=== PATIENT | male | born 1960 | race Caucasian/White ===

== ENCOUNTER 2020-12-04 10:37 | Outpatient (CLI) | payer OTHER | END 2020-12-04 10:38 | disposition home or self-care (01) | LOC: CSHULT 10:37 | PROVIDERS: ATTEND Nurse Practitioner Family | DX: B18.2 Chronic viral hepatitis C (principal); K74.60 Unspecified cirrhosis of liver; R16.1 Splenomegaly, not elsewhere classified | CPT/HCPCS: 76705 ==

== ENCOUNTER 2022-02-26 08:52 | Outpatient (CLI) | payer OTHER ==
[~2022-02-26 08:52] MED LIST: Iopamidol 300 61% 100 ML VIAL FS ONE
== END 2022-02-26 08:53 | disposition home or self-care (01) ==
LOC: CSHCT 08:52
PROVIDERS: ATTEND Urology
DX: R31.0 Gross hematuria (principal); N28.1 Cyst of kidney, acquired; K74.60 Unspecified cirrhosis of liver; K76.6 Portal hypertension; I87.8 Other specified disorders of veins
CPT/HCPCS: 74178; 82565; Q9967

== ENCOUNTER 2022-11-15 11:54 | Emergency (ER) | payer OTHER ==
[2022-11-15 13:18] LABS: INR-International Normal Ratio 1.1; PTT 29.9 sec (22.0-33.0); Prothrombin Time 12.1 sec (9.5-12.1)
[2022-11-15 13:40] LABS: #Basophils 0.1 10x3/uL (0.0-0.2); #Eosinphils 0.2 10x3/uL (0.0-0.5); #Monocytes 0.4 10x3/uL (0.0-1.1); #Neutrophils 2.7 10x3/uL (1.5-8.4); %Basophils 1.3 % (0.0-2.0); %Eosinophils 4.5 % (0.0-6.0); %Lymphocytes 15.6 % (18.0-47.0); %Monocytes 9.3 % (0.0-10.0); Hemoglobin 10.7 g/dL (13.5-17.5); Mean Corpuscular HGB CONC 34.9 g/dL (32.0-36.0); Mean Corpuscular Hemoglobin 32.4 pg (27.0-33.0); Mean Platelet Volume 12.5 fl (7.4-10.4); Platelet Count 61 10x3/uL (150-450); RBC Distribution Width 13.8 % (11.5-14.5)
[2022-11-15] MEDS ORDERED: Sodium Bicarbonate 2.5 MEQ/5 ML VIAL ONE (14:10)
[2022-11-15] MEDS ORDERED: Lidocaine 1% PF 5 ML VIAL ONE (14:10)
[2022-11-15 14:15] LABS: ALT (SGPT) 28 U/L (8-55); AST (SGOT) 38 U/L (5-34); Albumin 3.3 g/dL (3.4-4.8); Alkaline Phosphatase 113 U/L (40-110); Anion Gap 11 mmol/L (10-20); BUN (Urea Nitrogen) 16 mg/dL (8.4-25.7); Bilirubin, Total 1.6 mg/dL (0.2-1.2); Calc. Creatinine Clearance 0 mL/min (70-130); Calcium 8.4 mg/dL (7.8-10.44); Carbon Dioxide 23 mmol/L (23-31); Chloride 106 mmol/L (98-107); Estimated GFR 71; Globulin 2.4 g/dL (2.4-3.5); Glucose 91 mg/dL (80-115); Lipase 59 U/L (8-78); Potassium 3.9 mmol/L (3.5-5.1); Protein, Total 5.7 g/dL (5.8-8.1); Sodium 136 mmol/L (136-145)
== END 2022-11-15 16:30 | disposition home or self-care (01) ==
LOC: CSHERS 11:54
DX: R18.8 Other ascites (principal); I10 Essential (primary) hypertension; F17.210 Nicotine dependence, cigarettes, uncomplicated
CPT/HCPCS: 49083; 80053; 83690; 83735; 85025; 85610; 85730

== ENCOUNTER 2023-02-22 13:56 | Emergency (ER) | payer OTHER ==
[2023-02-22 15:17] LABS: Hemoglobin 10.6 g/dL (13.5-17.5); Mean Corpuscular HGB CONC 35.1 g/dL (32.0-36.0); Mean Corpuscular Hemoglobin 33.1 pg (27.0-33.0); Mean Corpuscular Volume 94.4 fl (81.2-95.1); Platelet Count 44 10x3/uL (150-450); RBC Distribution Width 14.1 % (11.5-14.5); White Blood Cell (WBC) Count 4.1 10x3/uL (3.5-10.5)
[2023-02-22 15:18] LABS: #Eosinphils 0.2 10x3/uL (0.0-0.5); #Monocytes 0.3 10x3/uL (0.0-1.1); #Neutrophils 3.1 10x3/uL (1.5-8.4); %Basophils 0.9 % (0.0-2.0); %Eosinophils 5.4 % (0.0-6.0); %Lymphocytes 14.5 % (18.0-47.0); %Monocytes 7.5 % (0.0-10.0); %Neutrophils 71.5 % (40.0-75.0); ALT (SGPT) 22 U/L (8-55); AST (SGOT) 39 U/L (5-34); Albumin 3.4 g/dL (3.4-4.8); Alkaline Phosphatase 114 U/L (40-110); Anion Gap 14 mmol/L (10-20); BUN (Urea Nitrogen) 15 mg/dL (8.4-25.7); Bilirubin, Total 1.1 mg/dL (0.2-1.2); Calc. Creatinine Clearance 0 mL/min (70-130); Calcium 8.9 mg/dL (7.8-10.44); Carbon Dioxide 22 mmol/L (23-31); Chloride 106 mmol/L (98-107); Estimated GFR 70; Globulin 2.3 g/dL (2.4-3.5); Glucose 125 mg/dL (80-115); INR-International Normal Ratio 1.1; PTT 29.2 sec (22.0-33.0); Potassium 4.2 mmol/L (3.5-5.1); Protein, Total 5.7 g/dL (5.8-8.1); Prothrombin Time 11.9 sec (9.5-12.1); Sodium 138 mmol/L (136-145)
== END 2023-02-22 15:50 | disposition home or self-care (01) ==
LOC: CSHERS 13:56
DX: K92.1 Melena (principal); I10 Essential (primary) hypertension
CPT/HCPCS: 36415; 80053; 82274; 85025; 85610; 85730; 99284

== ENCOUNTER 2023-03-17 09:44 | Emergency (ER) | payer OTHER ==
[2023-03-17] MEDS ORDERED: Sodium Bicarbonate 2.5 MEQ/5 ML VIAL ONE (10:24)
[2023-03-17] MEDS ORDERED: Lidocaine 1% PF 5 ML VIAL ONE (10:25)
== END 2023-03-17 11:24 | disposition home or self-care (01) ==
LOC: CSHERS 09:44
DX: R18.8 Other ascites (principal); I10 Essential (primary) hypertension; F17.210 Nicotine dependence, cigarettes, uncomplicated
CPT/HCPCS: 49083

== ENCOUNTER 2023-09-24 14:17 | Emergency (ER) | payer OTHER ==
[2023-09-24 15:56] LABS: #Eosinphils 0.2 10x3/uL (0.0-0.5); #Monocytes 0.5 10x3/uL (0.0-1.1); #Neutrophils 3.7 10x3/uL (1.5-8.4); %Basophils 0.8 % (0.0-2.0); %Eosinophils 4.4 % (0.0-6.0); %Lymphocytes 13.4 % (18.0-47.0); %Monocytes 9.8 % (0.0-10.0); %Neutrophils 71.4 % (40.0-75.0); Hematocrit 30.8 % (38.8-50.0); Mean Corpuscular HGB CONC 35.7 g/dL (32.0-36.0); Mean Corpuscular Hemoglobin 32.7 pg (27.0-33.0); Mean Corpuscular Volume 91.7 fl (81.2-95.1); Mean Platelet Volume 11.1 fl (7.4-10.4); Platelet Count 47 10x3/uL (150-450); RBC Distribution Width 13.9 % (11.5-14.5); Red Blood Cell (RBC) Count 3.36 10x6/uL (4.32-5.72); White Blood Cell (WBC) Count 5.2 10x3/uL (3.5-10.5)
[2023-09-24 16:07] LABS: INR-International Normal Ratio 1.2; PTT 30.8 sec (22.0-33.0); Prothrombin Time 12.4 sec (9.5-12.1)
[2023-09-24 16:09] LABS: ALT (SGPT) 25 U/L (8-55); AST (SGOT) 34 U/L (5-34); Albumin 3.5 g/dL (3.4-4.8); Alkaline Phosphatase 114 U/L (40-110); Anion Gap 13 mmol/L (10-20); BUN (Urea Nitrogen) 27 mg/dL (8.4-25.7); Bilirubin, Total 1.6 mg/dL (0.2-1.2); Calc. Creatinine Clearance 0 mL/min (70-130); Calcium 8.7 mg/dL (7.8-10.44); Carbon Dioxide 20 mmol/L (23-31); Chloride 105 mmol/L (98-107); Estimated GFR 42; Globulin 2.1 g/dL (2.4-3.5); Glucose 119 mg/dL (80-115); Potassium 4.3 mmol/L (3.5-5.1); Protein, Total 5.6 g/dL (5.8-8.1); Sodium 134 mmol/L (136-145)
[2023-09-24 16:43] LABS: RBC Morph Comment Within Normal Limits
[2023-09-24 16:44] LABS: Large Platelets SLIGHT (None Seen); Platelet Adequacy Comment Appears Decreased
== END 2023-09-24 18:19 | disposition home or self-care (01) ==
LOC: CSHERS 14:17
DX: R18.8 Other ascites (principal); I10 Essential (primary) hypertension; F17.210 Nicotine dependence, cigarettes, uncomplicated
CPT/HCPCS: 36415; 49083; 80053; 83880; 85025; 85610; 85730; 86850; 86900; 86901